=== PATIENT | male | born 1985 | race Caucasian/White ===

== ENCOUNTER 2017-04-12 06:36 | Emergency (ER) | payer SELFPAY ==
[2017-04-12 06:49] VITALS: BP 135/90
[2017-04-12 07:46] LABS: Bilirubin,Urine NEG (Negative); Blood,Urine NEG (Negative); Ketones,Urine NEG (Negative); Leukocyte Esterase,Urine NEG (Negative); Mucus,Urine FEW /HPF; Nitrite,Urine NEG (Negative); Protein,Urine <15 mg/dL mg/dL (Negative); Urobilinogen,Urine < 2.0 mg/dL (<2.0)
--- NOTE | 2017-04-12 08:00 | Emergency Department Report ---
ED Male HPI - General Chief complaint: Urogenital-Male Stated complaint: STD TESTING Time Seen by Provider: 04/12/17 07:35 Source: patient Mode of arrival: Ambulatory Limitations: No Limitations - History of Present Illness Initial comments: This is a 31-year-old male well-nourished with nontoxic or ill in appearance that presents with right groin discomfort with genital sores for the past 2 days. Patient stated his girlfriend was just diagnosed with folliculitis of the face and was concerned about an STD due to that reason and came in to get an evaluation today. Patient denies any scrotum pain, swelling, dysuria, stiff neck , polyuria, penile discharge, fever, chills, headache, SOB, CP, abdominal pain, pelvic pain, numbness, or tingling. Associated symptom includes burning sensation to penile area with sores and right groin discomfort. Patient denies any allergies or past medical hx. Denies HIV positive. MD Complaint: groin pain (right sided), other (penile sores) -: Gradual, days(s) (5) Location: penis, right inguinal region Radiation: none Severity: mild Severity scale (0 -10): 7 Quality: burning Consistency: constant Improves with: none Worsens with: none denies other symptoms. denies: discharge, swelling, mass, rash, urinary retention, blood in urine, dysuria, fever, nausea/vomiting, incontinence - Related Data Sexually active: Yes Previous Rx's Medication Instructions Recorded Last Taken Type Acyclovir [Zovirax Tab] 400 mg PO Q8H 5 Days 04/12/17 Unknown Rx Allergies Allergy/AdvReac Type Severity Reaction Status Date / Time No Known Allergies Allergy Unverified 04/12/17 06:45 ED Review of Systems ROS: Stated complaint: STD TESTING Other details as noted in HPI Constitutional: denies: chills, fever Eyes: denies: eye pain, eye discharge, vision change ENT: denies: ear pain, throat pain Respiratory: denies: cough, shortness of breath, wheezing Cardiovascular: denies: chest pain, palpitations Endocrine: no symptoms reported Gastrointestinal: denies: abdominal pain, nausea, diarrhea Genitourinary: denies: urgency, dysuria Musculoskeletal: denies: back pain, joint swelling, arthralgia Skin: denies: rash, lesions Neurological: denies: headache, weakness, paresthesias Psychiatric: denies: anxiety, depression Hematological/Lymphatic: denies: easy bleeding, easy bruising ED Past Medical Hx - Past Medical History Previous Medical History?: No - Social History Smoking Status: Unknown if ever smoked - Medications Home Medications: Home Medications Medication Instructions Recorded Confirmed Last Taken Type Acyclovir [Zovirax Tab] 400 mg PO Q8H 5 Days 04/12/17 Unknown Rx ED Physical Exam - General Limitations: No Limitations General appearance: alert, in no apparent distress - Head Head exam: Present: atraumatic, normocephalic, normal inspection - Eye Eye exam: Present: normal appearance, PERRL, EOMI. Absent: scleral icterus, conjunctival injection, nystagmus, periorbital swelling, periorbital tenderness Pupils: Present: normal accommodation - ENT ENT exam: Present: normal exam, normal orophraynx, mucous membranes moist, TM's normal bilaterally, normal external ear exam - Neck Neck exam: Present: normal inspection, full ROM. Absent: tenderness, meningismus, lymphadenopathy, thyromegaly - Respiratory Respiratory exam: Present: normal lung sounds bilaterally. Absent: respiratory distress, wheezes, rales, rhonchi, stridor, chest wall tenderness, accessory muscle use, decreased breath sounds, prolonged expiratory - Cardiovascular Cardiovascular Exam: Present: regular rate, normal rhythm, normal heart sounds. Absent: bradycardia, tachycardia, irregular rhythm, systolic murmur, diastolic murmur, rubs, gallop - GI/Abdominal GI/Abdominal exam: Present: soft, normal bowel sounds. Absent: distended, tenderness, guarding, rebound, rigid, diminished bowel sounds, hyperactive bowel sounds, hypoactive bowel sounds - Rectal Rectal exam: Present: deferred - exam: Present: normal inspection. Absent: testicular tenderness, urethral discharge, scrotal swelling, vertical testicular lie, circumcision External exam: Present: normal external exam, lesions (0.5 cm x 0.5 cm anterior penile shift x2). Absent: erythema, swelling, lacerations, ecchymosis, bleeding - Expanded Exam Expanded Male exam: Present: lesions. Absent: penile swelling, erythema, perineal induration exam: Inguinal Lymphadenopathy: Right, Cremasteric Reflex Present: Left, Right - Extremities Exam Extremities exam: Present: normal inspection, full ROM, normal capillary refill. Absent: tenderness, pedal edema, joint swelling, calf tenderness - Back Exam Back exam: Present: normal inspection, full ROM. Absent: tenderness, CVA tenderness (R), CVA tenderness (L), muscle spasm, paraspinal tenderness, vertebral tenderness, rash noted - Neurological Exam Neurological exam: Present: alert, oriented X3, CN II-XII intact, normal gait - Psychiatric Psychiatric exam: Present: normal affect, normal mood - Skin Skin exam: Present: warm, dry, intact, normal color. Absent: rash ED Course Vital Signs 04/12/17 06:46 Temperature 98.1 F Pulse Rate 81 Respiratory 20 Rate Blood Pressure 135/90 O2 Sat by Pulse 100 Oximetry ED Medical Decision Making - Medical Decision Making Ed course: This is a 31-year-old male that presents with right inguinal lymphadenopathy and genital lesions 1- after my physical exam, a UA and gonorrhea/chlamydia has been obtained. 2- patient was instructed to follow-up and 5-7 days and medical records to obtain gonorrhea/chlamydia results. 3- patient received Acyclovir or or time of discharge and was instructed to take full course of medication as prescribed 4- Patient was also notified to have his partner get a reevaluation of a possbile STD 5- Pt was instructed was instructed to f/u with his PCP in 3-5 days. 6- at time time of discharge, the patient does not seem toxic or ill in appearance. No acute signs of distress noted. Patient agrees to discharge treatment plan of care. No further questions noted by the patient. Critical care attestation.: If time is entered above; I have spent that time in minutes in the direct care of this critically ill patient, excluding procedure time. ED Disposition Clinical Impression: Inguinal lymphadenopathy Herpes, genital Qualifiers: Herpes simplex infection site: unspecified Qualified Code(s): A60.00 - Herpesviral infection of urogenital system, unspecified Disposition: DC-01 TO HOME OR SELFCARE Is pt being admited?: No Does the pt Need Aspirin: No Condition: Stable Instructions: Genital Herpes Simplex (ED) Additional Instructions: Follow-up with [facility] medical records in 3-7 days for your results of gonorrhea/ chlamydia. Follow-up with your primary care doctor in 3-5 days or if symptoms worsen report back to emergency room as soon as possible Take full course of Acyloviar as prescribed Prescriptions: Acyclovir [Zovirax Tab] 400 mg PO Q8H 5 Days Referrals: PRIMARY CAREMD [Primary Care Provider] - 3-5 Days [facility] [Outside] - 3-5 Days [facility] [place] [Outside] - 3-5 Days DOUG FITCH JR, MD [Staff Physician] - 3-5 Days Forms: Work/School Release Form(ED)
== END 2017-04-12 09:06 | disposition home or self-care (01) ==
LOC: ED 06:36
DX: A60.00 Herpesviral infection of urogenital system, unspecified (principal); R59.1 Generalized enlarged lymph nodes
CPT/HCPCS: 81001; 87591; 99283